=== PATIENT | female | born 1975 | race Caucasian/White ===

== ENCOUNTER 2018-02-08 19:44 | Emergency (ER) | payer OTHER ==
[2018-02-08 20:47] LABS: URINE BLOOD (Dip) POC 2+ (NEGATIVE); URINE GLUCOSE (Dip) POC Negative (NEGATIVE); URINE KETONES (Dip) POC Negative (NEGATIVE); URINE LEUKOCYTE EST (Dip) POC Negative (NEGATIVE); URINE NITRITE (Dip) POC Negative (NEGATIVE); URINE TOTAL PROTEIN POC Negative (NEGATIVE)
[2018-02-08 20:47] LABS: URINE PH (Dip) POC 7.5 (5.0-8.5)
[2018-02-08] MEDS: LORAZEPAM 1 MG TAB PO (20:54)
[2018-02-08] MEDS: DEXAMETHASONE 10 MG/ML 1 ML INJ PO (20:54)
[2018-02-08] MEDS: KETOROLAC 60 MG INJ IM (20:54)
== END 2018-02-08 23:03 | disposition home or self-care (01) ==
LOC: FTE 19:44
DX: M54.5 Low back pain (principal)
CPT/HCPCS: 72100; 73510; 81003; 81025; 96372; 99284-25